=== PATIENT | female | born 1945 | race Caucasian/White ===

== ENCOUNTER 2017-08-03 11:49 | Emergency (ER) | payer OTHER ==
[~2017-08-03] VITALS: Ht 165.1 cm; Wt 87.1 kg
[2017-08-03] MEDS ORDERED: PREDNISONE20 MG PO (13:51)
[2017-08-03] MEDS ORDERED: PEPCID40 MG PO (13:51)
[2017-08-03] MEDS ORDERED: KEFLEX500 MG PO (13:52)
[2017-08-03 14:09] VITALS: BP 136/116
== END 2017-08-03 14:10 | disposition home or self-care (01) ==
LOC: EME 11:49
DX: T78.40XA Allergy, unspecified, initial encounter (principal); X58.XXXA Exposure to other specified factors, initial encounter; L03.113 Cellulitis of right upper limb; L03.221 Cellulitis of neck; F17.200 Nicotine dependence, unspecified, uncomplicated
CPT/HCPCS: 99281; 99284; J7512